=== PATIENT | male | born 1960 | race Hispanic/Latino ===

== ENCOUNTER 2020-02-07 00:07 | Emergency (ER) | payer OTHER ==
[2020-02-07 00:14] VITALS: BP 167/98
[2020-02-07 00:32] LABS: Basophils # (Auto) 0.2 K/mm3 (0.0-0.1); Basophils % (Auto) 1.1 % (0.0-1.8); Eosinophils # (Auto) 0.4 K/mm3 (0.0-0.4); Eosinophils % (Auto) 2.2 % (0.0-4.3); Hematocrit 41.9 % (35.5-45.6); Hemoglobin 14.4 gm/dl (11.8-15.2); Lymphocytes # (Auto) 2.3 K/mm3 (1.2-5.4); Lymphocytes % (Auto) 13.6 % (13.4-35.0); Mean Corpuscular HGB Conc 34 % (32-34); Mean Corpuscular Volume 88 fl (84-94); Monocytes # (Auto) 1.8 K/mm3 (0.0-0.8); Monocytes % (Auto) 10.6 % (0.0-7.3); Platelet Count 203 K/mm3 (140-440); Red Blood Count 4.77 M/mm3 (3.65-5.03)
[2020-02-07 00:42] LABS: INR 0.96 (0.87-1.13)
[2020-02-07] MEDS ORDERED: FAMOTIDINE 20 MG TAB PO ONE (00:42)
[2020-02-07] MEDS ORDERED: ACETAMINOPHEN 500 MG TAB PO ONE (00:42)
[2020-02-07] MEDS ORDERED: IBUPROFEN 600 MG TAB PO ONE (00:42)
--- NOTE | 2020-02-07 00:48 | XRay Report ---
CHEST 1 VIEW INDICATION / CLINICAL INFORMATION: Chest Pain. COMPARISON: None available. FINDINGS: SUPPORT DEVICES: None. HEART / MEDIASTINUM: No significant abnormality. LUNGS / PLEURA: No acute interstitial or airspace pulmonary disease. Focal linear densities at the left lung base felt to represent subsegmental atelectasis. No pneumotho rax. ADDITIONAL FINDINGS: No significant additional findings. IMPRESSION: 1. No significant abnormality. Signer Name: Osmel Kc MD Signed: 02/07/2020 12:43 AM Workstation Name: [id number]
[2020-02-07 00:57] LABS: Alanine Aminotransferase 25 units/L (7-56); Albumin 3.9 g/dL (3.9-5); BUN/Creatinine Ratio 18; Blood Urea Nitrogen 21 mg/dL (9-20); Calcium 10.1 mg/dL (8.4-10.2); Hemolysis Index 4
[2020-02-07] MEDS ORDERED: MORPHINE 4 MG/1 ML INJ IV ONE (01:16)
--- NOTE | 2020-02-07 01:17 | Emergency Department Report ---
ED General Adult HPI - General Chief complaint: Chest Pain Stated complaint: CHEST PAIN Time Seen by Provider: 02/07/20 00:26 Source: patient, RN notes reviewed Mode of arrival: Ambulatory Limitations: No Limitations - History of Present Illness Initial comments: The patient is a pleasant 59-year-old gentleman. He is not known to myself previously. He typically follows with the [facility]. He has a history of recurrent pericarditis. He believes that he has idiopathic pericarditis, or possibly virally induced, he is not sure. He reports at least 7 episodes of pericarditis in his lifetime. He reports no fever, cough, or k nown exposure to coronavirus. He presents to the ER with 36 hours of constant central and left-sided chest pressure, pain and discomfort, feels "exactly like prior episodes of pericarditis." The pain does not radiate anywhere, and he endorses that it worsens when he lays flat, and takes a deep breath. It decreases when he sits up and with certain position. He denies DVT and pulmonary embolism risk factors. There is no complaint of headache, neck pain, exertional shortness of breath, lower abdominal pain, urinary symptoms, he denies viral syndrome, he denies focal extremity weakness and or numbness. -: Gradual, days(s) Location: chest Consistency: constant Improves with: other Worsens with: other Associated Symptoms: denies other symptoms - Related Data Previous Rx's Medication Instructions Recorded Last Taken Type Acetaminophen [Non-Aspirin Extra 500 mg PO Q6HR PRN #30 tablet 02/07/20 Unknown Rx Strength] Colchicine 0.6 mg PO BID #20 capsule 02/07/20 Unknown Rx Ibuprofen [Motrin] 600 mg PO Q8H PRN #30 tablet 02/07/20 Unknown Rx Allergies Allergy/AdvReac Type Severity Reaction Status Date / Time No Known Allergies Allergy Unverified 02/07/20 00:14 ED Review of Systems ROS: Stated complaint: CHEST PAIN Other details as noted in HPI Comment: All other systems reviewed and negative Cardiovascular: chest pain ED Past Medical Hx - Past Medical History Hx Hypertension: Yes Hx of Cancer: Yes (colon) Additional medical history: pericarditis - Surgical History Additional Surgical History: colectomy, hernia repair - Social History Smoking Status: Current Every Day Smoker Substance Use Type: Marijuana - Medications Home Medications: Home Medications Medication Instructions Recorded Confirmed Last Taken Type Acetaminophen [Non-Aspirin Extra 500 mg PO Q6HR PRN #30 tablet 02/07/20 Unknown Rx Strength] Colchicine 0.6 mg PO BID #20 capsule 02/07/20 Unknown Rx Ibuprofen [Motrin] 600 mg PO Q8H PRN #30 tablet 02/07/20 Unknown Rx ED Physical Exam - General Limitations: No Limitations General appearance: alert, in no apparent distress - Head Head exam: Present: atraumatic, normocephalic - Eye Eye exam: Present: normal appearance, EOMI. Absent: nystagmus - ENT ENT exam: Present: normal exam, normal orophraynx, mucous membranes moist, normal external ear exam - Neck Neck exam: Present: normal inspection, full ROM. Absent: tenderness, meningismus - Respiratory Respiratory exam: Present: normal lung sounds bilaterally. Absent: respiratory distress - Cardiovascular Cardiovascular Exam: Present: regular rate, normal rhythm, normal heart sounds. Absent: bradycardia, tachycardia, irregular rhythm, systolic murmur, diastolic murmur, rubs, gallop - GI/Abdominal GI/Abdominal exam: Present: soft. Absent: distended, tenderness, guarding, rebound, rigid, pulsatile mass - Rectal Rectal exam: Present: deferred - Extremities Exam Extremities exam: Present: normal inspection, full ROM, other (2+ pulses noted i n the bilateral upper and lower extremities. There is no palpable cord. negative Homans sign. Muscular compartments are soft. The pelvis is stable.). Absent: pedal edema, calf tenderness - Back Exam Back exam: Present: normal inspection, full ROM. Absent: tenderness, CVA tenderness (R), CVA tenderness (L), paraspinal tenderness, vertebral tenderness - Neurological Exam Neurological exam: Present: alert, oriented X3, normal gait, other (There is no facial droop. The tongue is midline. Extraocular movements are intact bilaterally. There is 5 out of 5 strength in bilateral upper and lower extremities. Sensation is intact to light touch bilateral upper and lower extremities. There is a normal gait.). Absent: motor sensory deficit - Psychiatric Psychiatric exam: Present: normal affect, normal mood - Skin Skin exam: Present: warm, dry, intact, normal color. Absent: rash ED Course Vital Signs 02/07/20 00:10 Temperature 97.7 F Pulse Rate 87 Respiratory 18 Rate Blood Pressure 167/98 O2 Sat by Pulse 100 Oximetry ED Medical Decision Making - Lab Data Result diagrams: 02/07/20 00:15 02/07/20 00:15 Vital Signs 02/07/20 00:10 Temperature 97.7 F Pulse Rate 87 Respiratory 18 Rate Blood Pressure 167/98 O2 Sat by Pulse 100 Oximetry Lab Results 02/07/20 02/07/20 02/07/20 Range/Units 00:15 00:15 00:15 WBC 16.8 H (4.5-11.0) K/mm3 RBC 4.77 (3.65-5.03) M/mm3 Hgb 14.4 (11.8-15.2) gm/dl Hct 41.9 (35.5-45.6) % MCV 88 (84-94) fl MCH 30 (28-32) pg MCHC 34 (32-34) % RDW 14.0 (13.2-15.2) % Plt Count 203 (140-440) K/mm3 Lymph % (Auto) 13.6 (13.4-35.0) % [place] % (Auto) 10.6 H (0.0-7.3) % Eos % (Auto) 2.2 (0.0-4.3) % Baso % (Auto) 1.1 (0.0-1.8) % Lymph # 2.3 (1.2-5.4) K/mm3 [place] # 1.8 H (0.0-0.8) K/mm3 Eos # 0.4 (0.0-0.4) K/mm3 Baso # 0.2 H (0.0-0.1) K/mm3 Seg Neutrophils % 72.5 H (40.0-70.0) % Seg Neutrophils # 12.2 H (1.8-7.7) K/mm3 PT 12.9 (12.2-14.9) Sec. INR 0.96 (0.87-1.13) Sodium 140 (137-145) mmol/L Potassium 3.9 (3.6-5.0) mmol/L Chloride 105.1 (98-107) mmol/L Carbon Dioxide 23 (22-30) mmol/L Anion Gap 16 mmol/L BUN 21 H (9-20) mg/dL Creatinine 1.2 (0.8-1.5) mg/dL Estimated GFR > 60 ml/min BUN/Creatinine Ratio 18 % Glucose 111 H (75-100) mg/dL Calcium 10.1 (8.4-10.2) mg/dL Total Bilirubin 0.20 (0.1-1.2) mg/dL AST 79 H (5-40) units/L ALT 25 (7-56) units/L Alkaline Phosphatase 97 (35-129) units/L Troponin T 3.200 H* (0.00-0.029) ng/mL Total Protein 7.2 (6.3-8.2) g/dL Albumin 3.9 (3.9-5) g/dL Albumin/Globulin Ratio 1.2 % Lipase 33 (13-60) units/L - EKG Data -: EKG Interpreted by Il EKG shows normal: sinus rhythm Rate: normal - EKG Data When compared to previous EKG there are: previous EKG unavailable 02/07/20 01:45 There is no prior EKG available for comparison. Sinus rhythm, 77 bpm, normal axis, QTC within normal limits, left ventricular hypertrophy, poor R wave progr ession, T wave inversion in the inferior leads, question NM depression sporadic leads. The EKG is abnormal. It is not a STEMI. There is no prior for comparison. - Radiology Data Radiology results: report reviewed, image reviewed Print Report Referring Physician: DEVON KIRAN Patient Name: PAMELA GRIFFIN Date of : 1960 Sex: Male Report Date: 2020-02-07 Report Status: Finalized Findings [facility] [address] [place] [address] XRay Report Signed Patient: PAMELA GRIFFIN MR#: [id number] : 1960 Acct:[id number] Age/Sex: 59 / M ADM Date: 02/07/20 Loc: ED Attending Dr: Ordering Physician: DEVON KIRAN MD Date of Service: 02/07/20 Procedure(s): XR chest routine 2V Accession Number(s): [id number] cc: DEVON KIRAN MD Fluoro Time In Minutes: CHEST 1 VIEW INDICATION / CLINICAL INFORMATION: Chest Pain. COMPARISON: None available. FINDINGS: SUPPORT DEVICES: None. HEART / MEDIASTINUM: No significant abnormality. LUNGS / PLEURA: No acute interstitial or airspace pulmonary disease. Focal linear densities at the left lung base felt to represent subsegmental atelectasis. No pneumothorax. ADDITIONAL FINDINGS: No significant additional findings. IMPRESSION: 1. No significant abnormality. Signer Name: Osmel Kc MD Signed: 02/07/2020 12:43 AM Workstation Name: [id number] Transcribed By: RODNEY Dictated By: Osmel Kc MD Electronically Authentica yoni By: Osmel Kc MD Signed Date/Time: 02/07/2042 DD/ - Medical Decision Making Differential diagnosis, including but not limited to: GERD, gastritis, hiatal hernia, pneumonia, pericarditis, acute coronary syndrome, myopericarditis Assessment and plan: 59-year-old gentleman with positional chest pain, not tachycardic, tachypneic or hypoxic, low risk by Wells criteria without DVT or pulmonary embolism risk factors, who has a history of recurrent pericarditis. Bedside transthoracic echocardiogram shows preserved left ventricle ejection fraction, approximately 50 to 55%, with a small to moderate sized anterior pericardial effusion. Laboratory studies reviewed and appreciated, and are unremarkable with the exception of elevated troponin. I have recommended admission to the medical service with cardiology consultation to the patient. At this point in time, he is refusing admission. The patient is alert and oriented x3, clinically sober, and exhibits decision-making capacity. Risks of leaving at this time AGAINST MEDICAL ADVICE were discussed with the patient extensively, he understands that he is at risk for , disability, paralysis, loss of quality of life, and is able to articulate these risks in his own words. The patient's AMA conversation is witnessed by nurse Fredy Sales. Patient will be discharged with NSAIDs and colchicine, he understands that he may return to the emergency room right away if and when he changes his mind. Critical care attestation.: If time is entered above; I have spent that time in minutes in the direct care of this critically ill patient, excluding procedure time. ED Disposition Clinical Impression: History of chest pain, Elevated troponin, History of pericarditis Disposition: DC-[id number] LEFT AGAINST MED ADVICE Is pt being admited?: No Does the pt Need Aspirin: No Condition: Undetermined Instructions: Acute Pericarditis (ED) Additional Instructions: As we discussed, you have left the hospital/emergency room AGAINST MEDICAL ADVICE. By leaving, you risked , disability, paralysis, permanent loss of quality of life. The ER is open 24 hours a day, 7 days a week. It never closes. Please return to the emergency room right away if and when you change your mind. If you decide not to return to the emergency room, please follow-up with the listed physician referrals as soon as possible. Also, recommend that patient avoid strenuous physical activity, exertion, alcohol, tobacco, smoke product consumption. Referrals: PRIMARY MD ETELVINA [Primary Care Provider] - 3-5 Days ABBIE QUIROZ MD [Staff Physician] - 3-5 Days SIN CHAVEZ MD [Staff Physician] - 3-5 Days
[2020-02-07 02:50] LABS: Chol/HDL Ratio 4.11 %; HDL Cholesterol 42 mg/dL (40-59); LDL Cholesterol,Direct 116 mg/dL (50-130)
== END 2020-02-07 02:02 | disposition left against medical advice (07) ==
LOC: ED 00:07
DX: R07.89 Other chest pain (principal); R74.8 Abnormal levels of other serum enzymes; I10 Essential (primary) hypertension; Z85.038 Personal history of other malignant neoplasm of large intestine; F17.200 Nicotine dependence, unspecified, uncomplicated; F12.10 Cannabis abuse, uncomplicated
CPT/HCPCS: 36415; 71046; 80053; 80061; 83690; 84484; 85025; 85610; 93005; 93010; 99284